=== PATIENT | female | born 1950 | race Caucasian/White ===

== ENCOUNTER 2018-11-03 07:12 | Inpatient (IN) | payer MEDICARE ==
[~2018-11-03] VITALS: Ht 165.1 cm; Wt 71.7 kg
[~2018-11-03 07:12] MED LIST: CLINDAMYCIN HC150 MG PO; LISINOPRIL-HCT1 EAC2 PO; NEXIUM40 MG PO; TYLENOL WITH C1 EACH PO; ULTRACET TABLE1 EACH PO; ZOLPIDEM TARTRA10 MG PO
--- OUTSIDE RECORDS SUMMARY | 2018-11-03 07:18 | XMS REPORT ---
Author Author Manjit Lowery Organization [employer] Address Unknown Phone Unavailable Care Team Providers Care Inbound Call Center Representative Name Role Phone Manjit Lowery Unavailable Allergies No Known Allergies Problems No Known Problems Medications No Known Medications Results No Known Results Summary Purpose [employer] Submission
--- OUTSIDE RECORDS SUMMARY | 2018-11-03 07:18 | XMS REPORT | Continuity of Care Document ---
Author Author [employer] Organization [employer] Address Unknown Phone Unavailable Care Team Providers Care Rehabilitation Team Lead Name Role Phone [employer] Information [employer] Unavailable Unavailable Problems Problem Status Onset Date Classification Date Reported Comments Source Osteoarthritis of lumbar spine, unspecified spinal osteoarthritis complication status Active Diagnosis 08/07/2016 Wally Boucher Sprain of right rotator cuff capsule, sequela Active Diagnosis 08/07/2016 Wally Boucher Osteoarthritis of thoracic spine, unspecified spinal osteoarthritis complication status Active Diagnosis 08/07/2016 Wally Boucher Medications Medication Details Route Status Patient Instructions Ordering Provider Order Date Source Cyclobenzaprine HCl 1 tablet Orally Active 5 MG Orally daily [facility] 02/02/2017 Wally Boucher Acetaminophen-Codeine #3 1 tablet as needed Orally Active 300- 30 MG Orally daily [facility] 02/02/2017 Wally Boucher Meloxicam 1 tablet Orally Active 7.5 MG Orally Once a day [facility] 02/02/2017 Wally Boucher Nexium 1 capsule Orally Active Orally Once a day [facility] Wally Boucher Meloxicam TAKE 1 TABLET BY MOUTH EVERY DAY NA Active 7.5 MG [facility] Wally Boucher Atorvastatin Calcium 1 tablet Orally Active Orally Once a day [facility] Wally Boucher Metformin HCl 1 tablet with meals Orally Active 500 MG Orally TID [facility] Wally Boucher Lisinopril 1 tablet Orally Active 20 MG Orally Once a day [facility] Wally Boucher Allergies, Adverse Reactions, Alerts Substance Category Reaction Severity Reaction type Status Date Reported Comments Source N.K.D.A. Adverse Reaction Info Not Available Adverse Reaction Active 08/06/2016 Wally Boucher Immunizations No Data Provided for This Section Results No Data Provided for This Section Pathology Reports No Data Provided for This Section Diagnostic Reports No Data Provided for This Section Consultation Notes No Data Provided for This Section Discharge Summaries No Data Provided for This Section History and Physicals No Data Provided for This Section Vital Signs Vital Sign Value Date Comments Source Weight 181.5 08/06/2016 Wally Boucher Height 66 08/06/2016 Wally Boucher Temperature Oral (F) 97.1 F 08/06/2016 Wally Boucher Heart Rate 96 08/06/2016 Wally Boucher Diastolic (mm Hg) 60 08/06/2016 Wally Boucher Systolic (mm Hg) 122 08/06/2016 Wally Boucher Encounters No Data Provided for This Section Procedures No Data Provided for This Section Assessment and Plan No Data Provided for This Section Plan of Care No Data Provided for This Section Social History No Data Provided for This Section Family History No Data Provided for This Section Advance Directives No Data Provided for This Section Functional Status No Data Provided for This Section
--- OUTSIDE RECORDS SUMMARY | 2018-11-03 07:18 | XMS REPORT ---
Author Author Manjit Lowery Organization [employer] Address Unknown Phone Unavailable Care Team Providers Care Mechanical Facilities Technician Name Role Phone Manjit Lowery Unavailable Allergies No Known Allergies Problems No Known Problems Medications No Known Medications Results No Known Results Summary Purpose [employer] Submission
--- OUTSIDE RECORDS SUMMARY | 2018-11-03 07:19 | XMS REPORT ---
Author Author Manjit Lowery Organization [employer] Address Unknown Phone Unavailable Care Team Providers Care Voltmeter Operator Name Role Phone Manjit Lowery Unavailable Allergies No Known Allergies Problems No Known Problems Medications No Known Medications Results No Known Results Summary Purpose [employer] Submission
--- OUTSIDE RECORDS SUMMARY | 2018-11-03 07:19 | XMS REPORT ---
Author Author Manjit Lowery Organization [employer] Address Unknown Phone Unavailable Care Team Providers Care Shingle Trimmer Name Role Phone Manjit Lowery Unavailable Allergies, Adverse Reactions, Alerts Substance Reaction Event Type N.K.D.A. Info Not Available Non Drug Allergy Problems Problem Type Condition Code Onset Dates Condition Status Assessment Osteoarthritis of lumbar spine, unspecified spinal osteoarthritis complication status M47.816 Active Assessment Sprain of right rotator cuff capsule, sequela S43.421S Active Assessment Osteoarthritis of thoracic spine, unspecified spinal osteoarthritis complication status M47.814 Active Medications Medication Code System Code Instructions Start Date End Date Status Dosage Nexium [facility] [address]-88 Orally Once a day Active 1 capsule Cyclobenzaprine HCl [facility] [address]-03 5 MG Orally daily Feb 02, 2017 Active 1 tablet Meloxicam [facility] 80615120381 7.5 MG Active TAKE 1 TABLET BY MOUTH EVERY DAY Acetaminophen-Codeine #3 [facility] [address]-94 300-30 MG Orally daily Feb 02, 2017 Active 1 tablet as needed Atorvastatin Calcium [facility] [address]-84 Orally Once a day Active 1 tablet Metformin HCl [facility] [address]-21 500 MG Orally TID Active 1 tablet with meals Lisinopril [facility] [address]-61 20 MG Orally Once a day Active 1 tablet Meloxicam [facility] [address]-89 7.5 MG Orally Once a day Feb 02, 2017 Active 1 tablet Vital Signs Date/Time: August 06, 2016 BMI 29.29 Index Weight 181.5 lbs Height 66 in Temperature 97.1 F Cardiac Monitoring Heart Rate 96 /min Blood Pressure Diastolic 60 mm Hg Blood Pressure Systolic 122 mm Hg Results No Known Results Summary Purpose [employer] Submission
[2018-11-03 08:01] LABS: BASOPHILS % 0.3 % (0.0-1.0); EOSINOPHILS # (AUTO) 0.1 (0.0-0.4); EOSINOPHILS % 0.5 % (0.0-6.0); HEMATOCRIT 38.7 % (34.2-44.1); HEMOGLOBIN 12.6 g/dL (12.0-16.0); LYMPHOCYTES # (AUTO) 0.3 (1.0-3.2); LYMPHOCYTES % 1.8 % (18.0-39.1); MEAN CORPUSCULAR HEMOGLOBIN 27.6 pg (28-32); MEAN CORPUSCULAR HGB CONC 32.6 g/dL (31-35); MEAN CORPUSCULAR VOLUME 84.7 fL (81-99); MONOCYTES # (AUTO) 0.9 (0.2-0.8); MONOCYTES % 6.1 % (4.4-11.3); NEUTROPHILS # (AUTO) 13.2 (2.1-6.9); NEUTROPHILS % 90.1 % (38.7-80.0); PLATELET COUNT 232 x10e3/uL (140-360); RED BLOOD COUNT 4.57 x10e6/uL (3.6-5.1); RED CELL DISTRIBUTION WIDTH 14.9 % (11.7-14.4)
[2018-11-03 08:14] LABS: ALBUMIN 3.8 g/dL (3.5-5.0); ALBUMIN/GLOBULIN RATIO 1.1 (0.8-2.0); ANION GAP 16.6 mmol/L (8-16); CALCIUM 10.1 mg/dL (8.4-10.2); CREATININE, SERUM 1.21 mg/dL (0.57-1.11); POTASSIUM 3.6 mmol/L (3.5-5.1)
[2018-11-03] MEDS ORDERED: NEXIUM40 MG PO (08:25)
[2018-11-03] MEDS ORDERED: VITAMIN D32000 UNIT PO (08:26)
[2018-11-03] MEDS ORDERED: JANUVIA100 MG PO (08:28)
[2018-11-03] MEDS ORDERED: LISINOPRIL-HCT1 EACH PO (08:28)
[2018-11-03] MEDS ORDERED: CO Q-10 100 MG1 EACH PO (08:28)
[2018-11-03] MEDS ORDERED: ATORVASTATIN CA20 MG PO (08:30)
[2018-11-03] MEDS ORDERED: MELOXICAM15 MG PO (08:30)
[2018-11-03] MEDS ORDERED: TRULICITY INJ (08:32)
[2018-11-03] MEDS ORDERED: FARXIGA PO (08:33)
[2018-11-03] MEDS ORDERED: PROMETHAZINE 25MG/ NS 50ML (IV) IV PRN (09:30)
[2018-11-03] MEDS ORDERED: SODIUM CHLORIDE 0.9% 1000ML 1,000 ML IV SCH (09:30)
[2018-11-03] MEDS ORDERED: DEXTROSE 50% SYRINGE 50 ML IV PRN (09:45)
[2018-11-03] MEDS: CEFTRIAXONE SOD 1 GM/NS 50 ML 50 ML IV SCH ×2 (10:00→21:47)
--- NOTE | 2018-11-03 10:00 | NUR ---
This 68 y/o female presented from the ER with recent onset of lower g i bleed since late last p m. She denies pain or discomfort at this time. There is an iv(18) in the left hand and radiology requests a second iv due to the pt's history of l mastectomy. Telemetry #29 is intact reading sinus rhythm. A second iv was placed in the r fa. The pt's family is in attendance.
--- OUTSIDE RECORDS SUMMARY | 2018-11-03 10:11 | XMS REPORT | Continuity of Care Document ---
Author Author [employer] Organization [employer] Address Unknown Phone Unavailable Care Team Providers Care Quality Reviewer Name Role Phone [employer] Unavailable Unavailable Problems Problem Status Onset Date [...] tablet Orally Active [address] [facility] 02/02/2017 Wally Boucher Acetaminophen-Codeine #3 1 tablet as needed Orally Active 300- [address] [facility] 02/02/2017 Wally Boucher Meloxicam 1 tablet Orally Active 7.5 MG Orally Once a day [facility] 02/02/2017 Wally Boucher Nexium 1 capsule Orally Active Orally Once a day [facility] Wally Boucher Meloxicam TAKE 1 TABLET BY MOUTH EVERY DAY NA Active 7.[address] [facility] Wally Boucher Atorvastatin Calcium 1 tablet Orally Active Orally Once a day [facility] Wally Boucher Metformin HCl 1 tablet with meals Orally Active [address] [facility] Wally Boucher Lisinopril 1 tablet Orally Active 20 MG Orally Once a day [facility] Wally Boucher Allergies, Adverse Reactions, Alerts [...]
[2018-11-03 10:32] VITALS: BP 135/54
--- NOTE | 2018-11-03 10:59 | History and Physical ---
CHIEF COMPLAINT: "I have been having bloody diarrhea since 1 o'clock this morning." HISTORY OF PRESENT ILLNESS: This 68-year-old white woman, who presents to [facility] with a 1-day history of bloody diarrhea. The patient's symptoms began immediately soon after midnight, early this morning. The patient complains of abdominal cramping, particularly in the lower abdominal area. The patient also complains of nausea and vomiting. The patient states that her weekly injectable GLP-1 agonist therapy, namely Trulicity causes her to have worsening GERD symptoms and sometimes nausea and vomiting. However, the patient states the symptoms are worse than usual. She denies any fever, chills, but states she feels quite ill. In the emergency room, the patient was found to have a white blood cell count of 14,600 with 90% segmented neutrophils. The patient's initial hemoglobin is 12.6 g/dL. The patient is also found to have BUN and creatinine of 25 and 1.21 respectively. The patient's AST and ALT were 64 and 84 respectively, but she does have history of fatty liver disease. The patient was admitted for further evaluation and treatment. The patient states she does take meloxicam on a daily basis and sporadically takes a full-dose aspirin for breakthrough pain. REVIEW OF SYSTEMS: GENERAL: Weight has been stable. No fever, chills, but she feels quite ill. HEENT: No headaches. No vision changes. CARDIOVASCULAR: No chest pain. No shortness of breath. No cough. She does complain of sleep apnea symptoms. GI: Nausea, vomiting, diarrhea, particularly bloody diarrhea since early this morning. The patient denies any melena. The patient states she has seen visible bright red blood in her stool and has been mainly liquid. : Denies any UTI symptoms. NEUROMUSCULAR: No limb weakness. She does have numbness in the plantar aspect of bilateral feet secondary to neuropathy. PAST MEDICAL HISTORY: 1. Type 2 diabetes mellitus with neuropathy. 2. Hypertensive heart disease. 3. Hyperlipidemia. 4. Generalized osteoarthritis. 5. GERD. 6. Chronic insomnia. 7. Fatty liver disease. PAST SURGICAL HISTORY: 1. Left mastectomy because of breast cancer. 2. Breast reconstruction. 3. Face lift. 4. Bilateral stapedectomy. FAMILY HISTORY: Brother with history of coronary artery bypass grafting. Mother of lung cancer at age 62. Father had Alzheimer disease. ALLERGIES: NO KNOWN DRUG ALLERGIES. SOCIAL HISTORY: She is , lives with . 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 She drinks a glass of wine twice a week. Denies any tobacco use. HOME MEDICATIONS: 1. Nexium 40 mg daily. 2. Lisinopril/hydrochlorothiazide 20/12.5 mg daily. 3. Januvia 100 mg daily. 4. Zolpidem 10 mg at bedtime p.r.n. insomnia. 5. Farxiga 10 mg daily. 6. Trulicity 1.5 mg subcutaneous weekly. 7. Vitamin D3 2000 units daily. 8. Tylenol with codeine No. 3 one pill every 6 hours for pain. 9. Vitamin B12 1000 mcg p.o. daily. 10. Biotin once daily. 11. Atorvastatin 40 mg at bedtime. 12. Coenzyme Q10 200 mg daily. 13. Meloxicam 15 mg daily. PHYSICAL EXAMINATION: GENERAL: She is awake, alert, and fluent. She is pleasant on exam. Her and daughter are bedside. VITAL SIGNS: Height 5 feet 5 inches, weight 170 pounds, BMI is 29. Blood pressure is 110/40, pulse is 104, respiratory rate 18, oxygen 96%, temp 99.0. INTEGUMENT: Skin is warm and dry. No pallor, jaundice, or diaphoresis. HEENT: Anicteric sclerae with dry mucous membranes. NECK: Supple. CARDIOVASCULAR: Tachycardic rate and rhythm. LUNGS: No rales, no rhonchi. ABDOMEN: Exquisite tenderness when palpating the lower quadrants, particularly in the left lower quadrant. She does have some guarding. EXTREMITIES: No edema. ASSESSMENT: 1. Diverticulitis, likely. 2. Lower gastrointestinal bleeding, likely secondary to diverticulitis. 3. Gastroesophageal reflux disease, exacerbated by underlying GLP-1 agonist therapy. 4. History of constipation with likely subsequent hemorrhoids. 5. Acute renal insufficiency. 6. Type 2 diabetes mellitus with neuropathy. PLAN: 1. We will stop lisinopril and hydrochlorothiazide as this patient has acute renal failure. 2. Stop all NSAIDs, namely meloxicam as well as aspirin since patient has known acute renal failure and has lower gastrointestinal bleeding. 3. Follow hemoglobin and hematocrit as well as white blood cell count. 4. Intravenous fluids. 5. Intravenous antibiotics for patient's presumed diverticulitis. 6. Order CT of abdomen and pelvis to confirm diagnosis of diverticulitis. 7. I will follow renal function and electrolytes. 8. Intravenous antiemetics. 9. Pain control. 10. Blood glucose monitoring control. I spent 45 minutes in the care of this patient. MD CHERRIE Singh/ANNALISA /[id number] MTDD
[2018-11-03 11:08] VITALS: BP 135/54
[2018-11-03] MEDS: INSULIN LISPRO 100 UNIT/1 ML 3ML VIAL SQ SCH ×3 (11:30→21:00)
[2018-11-03 11:48] VITALS: BP 117/56
--- NOTE | 2018-11-03 12:58 | Diagnostic Imaging Report ---
EXAM: CT Abdomen and Pelvis WITH intravenous contrast INDICATION: GI bleeding COMPARISON: None. TECHNIQUE: Abdomen and pelvis were scanned utilizing a multidetector helical scanner from the lung base to the pubic symphysis after administration of IV contrast. Coronal and sagittal reformations were obtained. Routine protocol was performed. Scan was performed when during portal venous phase. IV CONTRAST: 100 mL of Isovue-370 ORAL CONTRAST: Water COMPLICATIONS: None RADIATION DOSE: Total DLP: 760.54 mGy*cm Dose modulation, iterative reconstruction, and/or weight based adjustment of the mA/kV was utilized to reduce the radiation dose to as low as reasonably achievable. FINDINGS: LOWER THORAX: No focal consolidation. Mild bibasilar subsegmental atelectasis. 5 mm left lower lobe nodule (series 2 image 4). 9 mm left lower lobe calcified granuloma. Left breast implant. HEPATOBILIARY: Diffusely hypoattenuating liver parenchyma, consistent with hepatic steatosis. No focal liver lesions. No biliary ductal dilatation. The gallbladder appears unremarkable. SPLEEN: No splenomegaly. PANCREAS: No focal masses or ductal dilatation. ADRENALS: No adrenal nodules. KIDNEYS/URETERS: No hydronephrosis, stones, or solid mass lesions. PELVIC ORGANS/BLADDER: Unremarkable. PERITONEUM / RETROPERITONEUM: No free air or fluid. LYMPH NODES: No lymphadenopathy. VESSELS: Scattered atherosclerotic calcifications of the abdominal aorta and major branches. GI TRACT: Diffuse colonic wall thickening extending from the ascending colon through the sigmoid colon with pericolonic fat stranding most prominently adjacent to the descending colon. No evidence of bowel obstruction. BONES AND SOFT TISSUES: Unremarkable. IMPRESSION: Diffuse colonic wall thickening extending from the ascending colon to the sigmoid colon with pericolonic fat stranding most notably adjacent to the descending colon is consistent with colitis. Hepatic steatosis. Left lower lobe 5 mm pulmonary nodule. No imaging follow-up is needed. Signed by: Africa Richardson MD on 11/03/2018 12:54 PM
[2018-11-03] MEDS ORDERED: METRONIDAZOLE 500MG/NS 100ML 100 ML IV SCH (14:00)
[2018-11-03 14:14] LABS: HEMATOCRIT 34.2 % (34.2-44.1); HEMOGLOBIN 11.3 g/dL (12.0-16.0)
[2018-11-03] MEDS: METRONIDAZOLE 500MG/NS 100ML 100 ML IV SCH ×2 (14:41→23:44)
[2018-11-03 16:07] VITALS: BP 105/54
--- NOTE | 2018-11-03 16:22 | NUR ---
The pt. c/o headache and a call was placed to Dr. Walters for tylenol. Received order and also order to stop the q6hr h &h. Labs order for morning is already pending. Took the med i and the spouse states'she is asleep now don't wake her up.
[2018-11-03] MEDS: ACETAMINOPHEN 325 MG TAB PO PRN (16:43)
[2018-11-03] MEDS ORDERED: IOPAMIDOL 370 MG/ML 200 ML INFUS..BTL INJ ONE (19:59)
[2018-11-03] MEDS ORDERED: SODIUM CHLORIDE 0.9% 50ML 50 ML ONE (19:59)
[2018-11-03 20:00] VITALS: BP 137/74
--- NOTE | 2018-11-03 20:00 | NUR ---
ROUNDS DONE, PATIENT RESTING ON THE SIDE OF THE BED, IV INFUSING, NO COMPLAINTS OF PAIN OR DISCOMFORT. CALL LIGHT REMAIN IN REACH. WILL CONTINUE TO MONITOR
[2018-11-03] MEDS ORDERED: ZOLPIDEM TARTRATE 10 MG TAB PO SCH (21:00)
[2018-11-03] MEDS: ZOLPIDEM TARTRATE 10 MG TAB PO SCH (21:47)
[2018-11-04] VITALS (9 sets, daily range): BP systolic 102–143; BP diastolic 48–74
--- NOTE | 2018-11-04 | NUR ---
ASLEEP, WILL CONTINUE TO MONITOR.
[2018-11-04 05:39] LABS: BASOPHILS # (AUTO) 0.1 (0.0-0.1); BASOPHILS % 0.4 % (0.0-1.0); EOSINOPHILS # (AUTO) 0.1 (0.0-0.4); EOSINOPHILS % 0.5 % (0.0-6.0); HEMATOCRIT 32.9 % (34.2-44.1); HEMOGLOBIN 10.5 g/dL (12.0-16.0); LYMPHOCYTES # (AUTO) 1.5 (1.0-3.2); LYMPHOCYTES % 10.3 % (18.0-39.1); MEAN CORPUSCULAR HEMOGLOBIN 27.3 pg (28-32); MEAN CORPUSCULAR HGB CONC 31.9 g/dL (31-35); MEAN CORPUSCULAR VOLUME 85.5 fL (81-99); MONOCYTES # (AUTO) 1.2 (0.2-0.8); MONOCYTES % 8.8 % (4.4-11.3); NEUTROPHILS # (AUTO) 11.3 (2.1-6.9); NEUTROPHILS % 79.6 % (38.7-80.0); PLATELET COUNT 198 x10e3/uL (140-360); RED BLOOD COUNT 3.85 x10e6/uL (3.6-5.1); RED CELL DISTRIBUTION WIDTH 15.3 % (11.7-14.4)
[2018-11-04 06:03] LABS: ALANINE AMINOTRANSFERASE 75 IU/L (0-55); ALBUMIN 2.9 g/dL (3.5-5.0); ALBUMIN/GLOBULIN RATIO 0.9 (0.8-2.0); ALKALINE PHOSPHATASE 126 IU/L (40-150); ANION GAP 11.6 mmol/L (8-16); BLOOD UREA NITROGEN 17 mg/dL (7-26); BUN/CREATININE RATIO 20 (6-25); CALCIUM 8.9 mg/dL (8.4-10.2); CARBON DIOXIDE 23 mmol/L (22-29); CHLORIDE 106 mmol/L (98-107); CREATININE, SERUM 0.86 mg/dL (0.57-1.11); EST GLOMERULAR FILTRATION RATE > 60 ML/MIN (60-); GLUCOSE 107 mg/dL (74-118); POTASSIUM 3.6 mmol/L (3.5-5.1); SODIUM 137 mmol/L (136-145)
[2018-11-04] MEDS: METRONIDAZOLE 500MG/NS 100ML 100 ML IV SCH ×3 (06:07→22:30)
--- NOTE | 2018-11-04 06:59 | NUR ---
patient continue resting, rounds done, patient did have a bloody stool last night, no complaints at this time. will continue to monitor. call light in reach.
[2018-11-04] MEDS: INSULIN LISPRO 100 UNIT/1 ML 3ML VIAL SQ SCH ×4 (07:30→21:00)
--- NOTE | 2018-11-04 07:30 | NUR ---
This sign writer hand noted a small blood tinged stool and the pt. reports that there was much more in the previous stool. Rounding completed.
[2018-11-04] MEDS: PANTOPRAZOLE 40 MG 10ML VIAL IV SCH (08:15)
[2018-11-04] MEDS: SITAGLIPTIN 100 MG TAB PO SCH (08:15)
[2018-11-04] MEDS: CEFTRIAXONE SOD 1 GM/NS 50 ML 50 ML IV SCH ×2 (08:22→21:19)
--- NOTE | 2018-11-04 10:00 | NUR ---
Dr. Walters visited and new orders received and notated.
[2018-11-04 12:03] LABS: HEMATOCRIT 31.3 % (34.2-44.1); HEMOGLOBIN 10.2 g/dL (12.0-16.0)
--- NOTE | 2018-11-04 15:10 | NUR ---
Visit made by the Spiritual Care Department Pastoral Visitor, Lakeisha Torres. PV provided pastoral presence, prayer, hospitality, and supportive listening. Pastoral Visitor informed pt/family of the scope of [employer] and availability. EDER RODRIGUEZ Aircraft Lay Out Worker Spiritual Care Department O: [phone] Pager: [phone] ([phone] number calling from)
--- NOTE | 2018-11-04 15:40 | NUR ---
PLAN IS TO DISCHARGE HOME TOMORROW NO NEEDS FROM CM
[2018-11-04 18:13] LABS: HEMATOCRIT 31.3 % (34.2-44.1); HEMOGLOBIN 10.4 g/dL (12.0-16.0)
--- NOTE | 2018-11-04 19:20 | NUR ---
Patient received lying in bed. Daughter at bedside. AAO x 4. Patient had no c/o pain. No respiratory distress noted. Bed locked and in lowest position. Bed rails up x 2. Patient instructed to call for assistance when needed. Call light within reach.
[2018-11-04] MEDS: ZOLPIDEM TARTRATE 10 MG TAB PO SCH (21:18)
[2018-11-05] VITALS (7 sets, daily range): BP systolic 111–157; BP diastolic 51–67
[2018-11-05] MEDS: METRONIDAZOLE 500MG/NS 100ML 100 ML IV SCH ×3 (05:46→22:26)
[2018-11-05 06:28] LABS: BASOPHILS # (AUTO) 0.1 (0.0-0.1); BASOPHILS % 0.4 % (0.0-1.0); EOSINOPHILS # (AUTO) 0.1 (0.0-0.4); EOSINOPHILS % 0.6 % (0.0-6.0); HEMATOCRIT 32.1 % (34.2-44.1); HEMOGLOBIN 10.5 g/dL (12.0-16.0); LYMPHOCYTES # (AUTO) 1.3 (1.0-3.2); LYMPHOCYTES % 9.7 % (18.0-39.1); MEAN CORPUSCULAR HEMOGLOBIN 27.4 pg (28-32); MEAN CORPUSCULAR HGB CONC 32.7 g/dL (31-35); MEAN CORPUSCULAR VOLUME 83.8 fL (81-99); MONOCYTES # (AUTO) 1.2 (0.2-0.8); MONOCYTES % 8.4 % (4.4-11.3); NEUTROPHILS # (AUTO) 10.9 (2.1-6.9); NEUTROPHILS % 80.2 % (38.7-80.0); PLATELET COUNT 221 x10e3/uL (140-360); RED BLOOD COUNT 3.83 x10e6/uL (3.6-5.1)
[2018-11-05 06:54] LABS: ALANINE AMINOTRANSFERASE 48 IU/L (0-55); ALBUMIN 2.8 g/dL (3.5-5.0); ALBUMIN/GLOBULIN RATIO 0.8 (0.8-2.0); ALKALINE PHOSPHATASE 138 IU/L (40-150); ANION GAP 12.8 mmol/L (8-16); BLOOD UREA NITROGEN 11 mg/dL (7-26); BUN/CREATININE RATIO 13 (6-25); CALCIUM 9.2 mg/dL (8.4-10.2); CARBON DIOXIDE 22 mmol/L (22-29); CHLORIDE 106 mmol/L (98-107); CREATININE, SERUM 0.82 mg/dL (0.57-1.11); EST GLOMERULAR FILTRATION RATE > 60 ML/MIN (60-); GLUCOSE 118 mg/dL (74-118); POTASSIUM 3.8 mmol/L (3.5-5.1); SODIUM 137 mmol/L (136-145)
[2018-11-05] MEDS: INSULIN LISPRO 100 UNIT/1 ML 3ML VIAL SQ SCH ×4 (07:30→21:00)
[2018-11-05 07:57] LABS: BAND NEUTROPHILS % (MANUAL) 19 %; EOSINOPHILS % (MANUAL) 1 % (0-7); HYPOCHROMASIA SLIGHT; LYMPHOCYTES % (MANUAL) 6 % (19-48); METAMYELOCYTES % (MANUAL) 2 % (0-0); MONOCYTES % (MANUAL) 6 % (3.4-9.0); NEUTROPHILS % (MANUAL) 66 % (40-74); PLATELET ESTIMATE ADEQUATE; PLATELET MORPHOLOGY COMMENT NORMAL
[2018-11-05] MEDS: ACETAMINOPHEN 325 MG TAB PO PRN (07:58)
[2018-11-05] MEDS: SITAGLIPTIN 100 MG TAB PO SCH (08:38)
[2018-11-05] MEDS: PANTOPRAZOLE 40 MG 10ML VIAL IV SCH (08:38)
[2018-11-05] MEDS: CEFTRIAXONE SOD 1 GM/NS 50 ML 50 ML IV SCH ×2 (08:38→21:27)
[2018-11-05] MEDS ORDERED: DICYCLOMINE HCL 20 MG TAB PO NR (09:30)
--- NOTE | 2018-11-05 10:30 | NUR ---
Nutrition Screen Note RD Recommendation for Physician: -Rec to advance diet as tolerated to ADA/ GI soft Plan of Care: RD following, monitoring for tolerance and adequacy Nutrition reason for involvement: Nutrition Risk Trigger MST Primary Diagnose(s): lower GI bleed PMH: 1. Type 2 diabetes mellitus with neuropathy. 2. Hypertensive heart disease. 3. Hyperlipidemia. 4. Generalized osteoarthritis. 5. GERD. 6. Chronic insomnia. 7. Fatty liver disease. Ht: 65in Wt: 158lb BMI: 26.3kg/m2 IBW: 125lb +/- 10% RD Assessment: (11/05) Chart reviewed. Labs and meds reviewed. 68 yo F, who was admitted for lower GI bleed. Abd/pel CT showed colitis. Visited pt in the room. Pt reported eating well prior and during hospital stay. No complains of nausea or vomiting. LBM 11/04. Pt has lost ~20lbs in the past few years and was happy about the weight loss. Pt denied any chewing or swallowing difficulty. Will continue to monitor and follow. Current Diet: clear liquid diet Malnutrition Evaluation (11/05/2018) The patient does not meet criteria for a specified degree of malnutrition at this time. Will re-evaluate at follow-up as appropriate. Diet Education Needs Assessment: Diet education not indicated. Nutrition Care Level: low Signed: Shelbie Nieves, MS, RD, LD
[2018-11-05 12:14] LABS: HEMATOCRIT 29.1 % (34.2-44.1); HEMOGLOBIN 9.6 g/dL (12.0-16.0)
[2018-11-05] MEDS ORDERED: PEG (High)/E-LYTE SOLN 4,000 ML BTL PO NR (12:15)
[2018-11-05 12:29] LABS: PROTHROMBIN TIME 13.7 seconds (11.9-14.5)
[2018-11-05] MEDS: DICYCLOMINE HCL 10 MG CAP PO SCH (16:51)
[2018-11-05 18:29] LABS: HEMATOCRIT 31.2 % (34.2-44.1); HEMOGLOBIN 10.3 g/dL (12.0-16.0)
--- NOTE | 2018-11-05 19:13 | NUR ---
PT IS RESTING IN BED. RESPIRATION IS EVEN AND UNLABORED, NO DISTRESS NOTED. BED IN THE LOWEST POSITION, LOCKED, AND CALL LIGHT WITHIN REACH. WILL CONTINUE TO MONITOR.
--- NOTE | 2018-11-05 19:18 | NUR ---
PATIENT IN STABLE CONDITION WITH NO S/S OF RESPIRATORY DISTRESS. NO PAIN VOICED. FAMILY MEMBERS PRESENT IN ROOM. CALL LIGHT IS WITHIN REACH, PATIENT INSTRUCTED TO CALL FOR ASSISTANCE NEEDED. BEDSIDE REPORT GIVEN TO ONCOMING NURSE.
[2018-11-05] MEDS: ZOLPIDEM TARTRATE 10 MG TAB PO SCH (21:27)
[2018-11-06] VITALS (8 sets, daily range): BP systolic 108–144; BP diastolic 54–65
[2018-11-06 00:04] LABS: HEMATOCRIT 29.6 % (34.2-44.1); HEMOGLOBIN 9.7 g/dL (12.0-16.0)
[2018-11-06] MEDS: METRONIDAZOLE 500MG/NS 100ML 100 ML IV SCH ×3 (05:30→21:27)
[2018-11-06 06:08] LABS: BASOPHILS # (AUTO) 0.1 (0.0-0.1); BASOPHILS % 0.8 % (0.0-1.0); EOSINOPHILS # (AUTO) 0.2 (0.0-0.4); EOSINOPHILS % 2.6 % (0.0-6.0); HEMOGLOBIN 8.8 g/dL (12.0-16.0); LYMPHOCYTES # (AUTO) 1.3 (1.0-3.2); LYMPHOCYTES % 19.1 % (18.0-39.1); MEAN CORPUSCULAR HEMOGLOBIN 27.6 pg (28-32); MEAN CORPUSCULAR HGB CONC 32.6 g/dL (31-35); MEAN CORPUSCULAR VOLUME 84.6 fL (81-99); MONOCYTES # (AUTO) 0.8 (0.2-0.8); MONOCYTES % 11.6 % (4.4-11.3); NEUTROPHILS # (AUTO) 4.2 (2.1-6.9); NEUTROPHILS % 64.2 % (38.7-80.0); PLATELET COUNT 178 x10e3/uL (140-360); RED BLOOD COUNT 3.19 x10e6/uL (3.6-5.1); RED CELL DISTRIBUTION WIDTH 14.8 % (11.7-14.4)
[2018-11-06 06:30] LABS: ALANINE AMINOTRANSFERASE 29 IU/L (0-55); ALBUMIN 2.6 g/dL (3.5-5.0); ALBUMIN/GLOBULIN RATIO 0.8 (0.8-2.0); ALKALINE PHOSPHATASE 107 IU/L (40-150); ANION GAP 13.5 mmol/L (8-16); BLOOD UREA NITROGEN 9 mg/dL (7-26); BUN/CREATININE RATIO 12 (6-25); CALCIUM 8.7 mg/dL (8.4-10.2); CARBON DIOXIDE 22 mmol/L (22-29); CHLORIDE 106 mmol/L (98-107); CREATININE, SERUM 0.74 mg/dL (0.57-1.11); EST GLOMERULAR FILTRATION RATE > 60 ML/MIN (60-); GLUCOSE 90 mg/dL (74-118); POTASSIUM 3.5 mmol/L (3.5-5.1); SODIUM 138 mmol/L (136-145)
[2018-11-06] MEDS: DICYCLOMINE HCL 10 MG CAP PO SCH ×3 (06:43→18:04)
[2018-11-06 06:45] LABS: FERRITIN 85.36 ng/mL (4.63-204.00)
--- NOTE | 2018-11-06 07:15 | NUR ---
PATIENT IN STABLE CONDITION WITH NO S/S OF RESPIRATORY DISTRESS. NO PAIN VOICED. PATIENT IS SET TO HAVE A COLONOSCOPY TODAY. CALL LIGHT IS WITHIN REACH, PATIENT INSTRUCTED TO CALL FOR ASSISTANCE NEEDED.
[2018-11-06] MEDS: INSULIN LISPRO 100 UNIT/1 ML 3ML VIAL SQ SCH ×4 (07:30→20:24)
[2018-11-06 08:03] LABS: FOLATE 28.4 ng/mL (7.0-15.4)
[2018-11-06] MEDS: SITAGLIPTIN 100 MG TAB PO SCH (08:06)
[2018-11-06] MEDS: PANTOPRAZOLE 40 MG 10ML VIAL IV SCH (08:06)
[2018-11-06] MEDS: CEFTRIAXONE SOD 1 GM/NS 50 ML 50 ML IV SCH ×2 (08:33→20:24)
[2018-11-06 12:41] LABS: HEMATOCRIT 30.6 % (34.2-44.1)
--- NOTE | 2018-11-06 16:27 | NUR ---
PATIENT OFF THE UNIT PER BED TO [facility] FOR COLONOSCOPY. PATIENT IN STABLE CONDITION WITH NO S/S OF RESPIRATORY DISTRESS.
[2018-11-06] MEDS ORDERED: DEXTROSE 5%/0.45% SOD CHL 500 ML IV ONE (16:30)
[2018-11-06] MEDS ORDERED: PROPOFOL IV EMULSION 10 MG/ML 50 ML VIAL ONE (16:51)
--- NOTE | 2018-11-06 17:56 | NUR ---
PATIENT BACK ON THE UNIT PER BED FROM RECOVERY- PATIENT IN STABLE CONDITION WITH NO S/S OF RESPIRATORY DISTRESS. DIAPER APPLIED TO PATIENT. CALL LIGHT WITHIN REACH OF PATIENT.
[2018-11-06 18:48] LABS: WBC,FECAL (FECAL LACTOFERRIN) POSITIVE (NEGATIVE)
--- NOTE | 2018-11-06 19:02 | NUR ---
PATIENT IN STABLE CONDITION WITH NO S/S OF RESPIRATORY DISTRESS. NO PAIN VOICED. DIAPER APPLIED. CALL LIGHT IS WITHIN REACH, PATIENT INSTRUCTED TO CALL FOR ASSISTANCE NEEDED. BEDSIDE REPORT GIVEN TO ONCOMING NURSE.
[2018-11-06] MEDS ORDERED: FENTANYL CITRATE/PF 100MCG/2 ML INJ ONE (19:14)
[2018-11-06] MEDS ORDERED: MIDAZOLAM HCL 2 MG/2 ML VIAL ONE (19:14)
[2018-11-06] MEDS: ZOLPIDEM TARTRATE 10 MG TAB PO SCH (20:24)
[2018-11-06] MEDS ORDERED: POTASSIUM CHLORIDE 10MEQ EA PO NR (20:30)
[2018-11-07] VITALS: BP 120/53
--- NOTE | 2018-11-07 03:14 | Operative Report ---
DATE OF PROCEDURE: 11/06/2018 SURGEON: Eliud Foy MD PROCEDURE: Colonoscopy with biopsies. INDICATIONS FOR COLONOSCOPY: Rectal bleeding. MEDICATION: The patient was done under MAC, please see anesthesiologist's note. PROCEDURE IN DETAIL: With the patient in the left lateral decubitus position, flexible fiberoptic Olympus colonoscope was inserted into the rectum with ease and advanced to approximately 80 cm from the anal verge probably to the distal transverse colon. It could not be advanced any further to avoid possibly perforating the colon as the descending colon and sigmoid colon were severely and diffusely ulcerated as well as the distal transverse colon. The scope was then withdrawn slowly and mucosa overlying the distal transverse descending and the proximal two-thirds of the sigmoid colon were severely and diffusely ulcerated. Biopsies were obtained. The distal sigmoid was spared as well as the rectum. The scope was then retroflexed into the distal rectum and small internal hemorrhoids were noted, none of which was actively bleeding. The scope was then straightened out, it was subsequently withdrawn after securing an adequate stool specimen and that was sent for the appropriate stool studies. The patient tolerated procedure well. IMPRESSION: 1. Colonoscopy to approximately 80 cm from the anal verge. Scope not advanced any further to avoid the risk of perforating the colon as the colonic mucosa was severely and diffusely ulcerated. 2. Rule out ischemic colitis. 3. Internal hemorrhoids, none actively bleeding. PLAN: Follow up histology. Follow up stool studies. Initiate full liquid diet. The patient will need a followup colonoscopy in two months to re-evaluate the colon and document healing. Eliud Foy MD [facility] [place] [place] [facility] [id number] cc: Long Walters MD
[2018-11-07 04:00] VITALS: BP 134/59
[2018-11-07] MEDS: METRONIDAZOLE 500MG/NS 100ML 100 ML IV SCH (05:27)
[2018-11-07 06:23] LABS: BASOPHILS # (AUTO) 0.1 (0.0-0.1); BASOPHILS % 1.2 % (0.0-1.0); EOSINOPHILS # (AUTO) 0.2 (0.0-0.4); EOSINOPHILS % 4.7 % (0.0-6.0); HEMATOCRIT 30.9 % (34.2-44.1); HEMOGLOBIN 9.8 g/dL (12.0-16.0); LYMPHOCYTES # (AUTO) 1.3 (1.0-3.2); LYMPHOCYTES % 26.6 % (18.0-39.1); MEAN CORPUSCULAR HGB CONC 31.7 g/dL (31-35); MEAN CORPUSCULAR VOLUME 85.1 fL (81-99); MONOCYTES # (AUTO) 0.6 (0.2-0.8); MONOCYTES % 12.4 % (4.4-11.3); NEUTROPHILS # (AUTO) 2.4 (2.1-6.9); NEUTROPHILS % 50.2 % (38.7-80.0); PLATELET COUNT 236 x10e3/uL (140-360); RED BLOOD COUNT 3.63 x10e6/uL (3.6-5.1); RED CELL DISTRIBUTION WIDTH 14.7 % (11.7-14.4)
[2018-11-07 06:46] LABS: ALANINE AMINOTRANSFERASE 24 IU/L (0-55); ALBUMIN 2.5 g/dL (3.5-5.0); ALBUMIN/GLOBULIN RATIO 0.8 (0.8-2.0); ALKALINE PHOSPHATASE 99 IU/L (40-150); ANION GAP 12.8 mmol/L (8-16); BLOOD UREA NITROGEN 9 mg/dL (7-26); BUN/CREATININE RATIO 13 (6-25); CALCIUM 8.7 mg/dL (8.4-10.2); CARBON DIOXIDE 21 mmol/L (22-29); CHLORIDE 107 mmol/L (98-107); EST GLOMERULAR FILTRATION RATE > 60 ML/MIN (60-); GLUCOSE 80 mg/dL (74-118); POTASSIUM 3.8 mmol/L (3.5-5.1); SODIUM 137 mmol/L (136-145)
[2018-11-07] MEDS: INSULIN LISPRO 100 UNIT/1 ML 3ML VIAL SQ SCH ×2 (07:30→11:30)
--- NOTE | 2018-11-07 07:30 | NUR ---
PT UP IN BED NO DISTRESS NOTED ,DENIES PAIN
[2018-11-07 07:35] VITALS: BP 107/52
[2018-11-07 08:15] VITALS: BP 107/52
[2018-11-07] MEDS: DICYCLOMINE HCL 10 MG CAP PO SCH ×2 (09:01→12:08)
[2018-11-07] MEDS: PANTOPRAZOLE 40 MG 10ML VIAL IV SCH (09:01)
[2018-11-07] MEDS: SITAGLIPTIN 100 MG TAB PO SCH (09:08)
[2018-11-07] MEDS: CEFTRIAXONE SOD 1 GM/NS 50 ML 50 ML IV SCH (09:08)
[2018-11-07] MEDS ORDERED: LOPERAMIDE HCL 2 MG CAP PO ONE (10:00)
--- NOTE | 2018-11-07 10:30 | NUR ---
DR Gomez HERE ODRES WRITTEN
--- NOTE | 2018-11-07 10:40 | Discharge Summary ---
ADMIT DIAGNOSES: 1. Diverticulitis. 2. Lower gastrointestinal bleeding, likely secondary to diverticulitis. 3. Gastroesophageal reflux disease exacerbated by underlying GLP-1 agonist therapy. 4. History of constipation with likely subsequent hemorrhoids. 5. Acute renal insufficiency. 6. Type 2 diabetes mellitus with neuropathy. DISCHARGE DIAGNOSES: 1. Ischemic colitis, resolving. 2. Lower gastrointestinal bleeding, secondary to ischemic colitis, resolved. 3. Acute posthemorrhagic anemia, stabilized. 4. Gastroesophageal reflux disease, likely exacerbated by the patient's underlying GLP-1 agonist therapy. 5. Chronic constipation. 6. Acute renal insufficiency, resolved. 7. Type 2 diabetes mellitus with neuropathy. HOSPITAL COURSE: This is a 68-year-old white woman, who was initially admitted to [facility] because of lower gastrointestinal bleeding that was thought to be initially secondary to diverticulitis. On admission, the patient underwent a CT of the abdomen and pelvis with intravenous contrast that revealed findings consistent with diffuse colonic wall thickening extending from the ascending colon to the sigmoid colon with pericolonic fat stranding. The CT of the abdomen and pelvis also revealed findings consistent with hepatic steatosis. The patient initially was found to have a white blood cell count of 14,600 with 78% segmenters. On day of discharge, the patient's white blood cell count was 4800 with 50% segmenters. The patient's hemoglobin on admission was 12.6 g/dL. On day of discharge, it was 9.8 g/dL. The patient was not transfused blood during this hospitalization. The patient improved clinically with intravenous fluids as well as intravenous antibiotics, namely ceftriaxone and metronidazole, which she tolerated quite well. The patient had stool studies during this hospitalization and stool culture for E coli Shiga toxin was negative. Salmonella and Shigella cultures were also negative. Stool cultures were also negative. Campylobacter culture was still pending on the day of discharge. The patient was found to have positive stool lactoferrin during this hospitalization. She was also found to be Hemoccult positive on admission. On admission, the patient's BUN and creatinine was 25 and 1.21 respectively. This improved dramatically with intravenous fluids. On the day of discharge, the patient's BUN and creatinine was 9 and 0.7 respectively. Also on admission, the patient's AST and ALT were 64 and 84 respectively. On the day of discharge, the patient's AST and ALT were 15 and 24 respectively. Also during this hospitalization, the patient had iron studies done, which were consistent with iron deficiency anemia. The patient was seen by Gastroenterology during this hospitalization, namely Dr. Eliud Foy, who performed colonoscopy. The colonoscopy revealed internal hemorrhoids that were not actively bleeding. It did reveal that the colonoscope was not advanced past 80 cm from the anal verge because of the severely diffuse ulcerated colon. The shoe packer, namely Dr. Eliud Foy felt that these findings were consistent with ischemic colitis. The patient's hospitalization was unremarkable. On discharge, she was tolerating a full liquid diet. Also prior to discharge, her hematochezia had resolved. CONDITION ON DISCHARGE: Stable. DISCHARGE MEDICATIONS: 1. Metronidazole 500 mg p.o. t.i.d. for 5 more days. 2. Bentyl 20 mg p.o. t.i.d. for 2 weeks. 3. Nexium 40 mg daily. 4. Januvia 100 mg daily. 5. Zolpidem 10 mg at bedtime p.r.n. insomnia. 6. Farxiga 10 mg daily. 7. Trulicity 1.5 mg subcutaneous weekly. 8. Tylenol with codeine No. 3 one pill every 6 hours p.r.n. pain. The following medications will be on hold until further notice: 1. Meloxicam. 2. Aspirin. 3. Atorvastatin. 4. Coenzyme Q10. 5. Biotin. 6. Lisinopril and hydrochlorothiazide. The patient was also instructed to avoid all NSAIDs as well as aspirin and meloxicam. FOLLOWUP INSTRUCTIONS: The patient was instructed to follow up with her primary care physician, namely Dr. Long Walters within the next 7-10 days. MD CHERRIE Singh/ANNALISA /[id number]
[2018-11-07 11:47] VITALS: BP 120/57
[2018-11-07 12:23] LABS: C DIFFICILE TOXIN A&B AMP PROB NEGATIVE (NEGATIVE)
[2018-11-07] MEDS ORDERED: FLAGYL250 MG PO (13:58)
[2018-11-07] MEDS ORDERED: BENTYL10 MG/1 ML PO (13:59)
--- NOTE | 2018-11-07 14:40 | NUR ---
PT DISCHARGED HOME IV DCD WITHUT REDNESS OR SWELLING,TOLERATED DIET WELL,TRANSPORTED TO AUTO VIA W/C
== END 2018-11-07 14:10 | disposition home or self-care (01) | DRG 871 ==
LOC: ER 07:12 → ERHOLD 09:27 → MED/SURG3 10:19
PROVIDERS: ADMIT Internal Medicine; ATTEND Internal Medicine
PROC: 0DBM8ZX Excision of Descending Colon, Via Natural or Artificial Opening Endoscopic, Diagnostic (ICD-10-PCS; principal; 2018-11-06 16:58)
DX: A41.9 Sepsis, unspecified organism (principal); K57.93 Diverticulitis of intestine, part unspecified, without perforation or abscess with bleeding; N17.9 Acute kidney failure, unspecified; D62 Acute posthemorrhagic anemia; E11.40 Type 2 diabetes mellitus with diabetic neuropathy, unspecified; Z79.4 Long term (current) use of insulin; K21.9 Gastro-esophageal reflux disease without esophagitis; G47.00 Insomnia, unspecified; M19.90 Unspecified osteoarthritis, unspecified site; E78.5 Hyperlipidemia, unspecified; Z85.3 Personal history of malignant neoplasm of breast; Z90.12 Acquired absence of left breast and nipple; K64.9 Unspecified hemorrhoids; K59.09 Other constipation; K76.0 Fatty (change of) liver, not elsewhere classified
CPT/HCPCS: 36415; 45380; 74177; 80053; 82270; 82607; 82728; 82746; 82948; 83540; 83630; 83993; 84466; 85014; 85018; 85025; 85045; 85610; 85730; 86850; 86900; 87045; 87177; 87328; 87493; 88305; 99284; J0696; J2250; J3010; J7030; Q9967

== ENCOUNTER → 2020-07-06 | Outpatient (CLI) | payer MEDICARE ==
[~2020-07-06] MED LIST changes: +ATORVASTATIN CA20 MG PO; +BENTYL10 MG/1 ML PO; +CO Q-10 100 MG1 EACH PO; +FARXIGA PO; +FLAGYL250 MG PO; +JANUVIA100 MG PO; +LISINOPRIL-HCT1 EACH PO; +MELOXICAM15 MG PO; +TRULICITY INJ; +VITAMIN D32000 UNIT PO
== END ==
LOC: US 12:33
PROVIDERS: ATTEND Internal Medicine
DX: R10.10 Upper abdominal pain, unspecified (principal); R10.811 Right upper quadrant abdominal tenderness
CPT/HCPCS: 76705

== ENCOUNTER 2021-04-12 08:28 | Emergency (ER) | payer MEDICARE ==
[~2021-04-12] VITALS: Ht 162.6 cm; Wt 65.8 kg
[2021-04-12] MEDS ORDERED: CASIRIVIMAB/IMDEVIMAB 10 ML in SODIUM CHLORIDE 0.9% 100 ML IV ONE (08:45)
== END 2021-04-12 10:26 | disposition home or self-care (01) ==
LOC: ER 08:48
DX: U07.1 COVID-19 (principal); I10 Essential (primary) hypertension; E11.9 Type 2 diabetes mellitus without complications; Z79.84 Long term (current) use of oral hypoglycemic drugs; Z79.899 Other long term (current) drug therapy; Z85.3 Personal history of malignant neoplasm of breast
CPT/HCPCS: 99283; J7050

== ENCOUNTER → 2021-09-01 | Outpatient (CLI) | payer MEDICARE | LOC: MAMMO 14:29 | PROVIDERS: ATTEND Obstetrics & Gynecology | DX: Z12.31 Encounter for screening mammogram for malignant neoplasm of breast (principal) ==

== ENCOUNTER → 2022-09-11 | Outpatient (CLI) | payer MEDICARE | LOC: MAMMO 09:13 | PROVIDERS: ATTEND Internal Medicine | DX: Z12.31 Encounter for screening mammogram for malignant neoplasm of breast (principal) ==

== ENCOUNTER 2024-02-01 09:44 | Emergency (ER) | payer MEDICARE ==
[~2024-02-01] VITALS: Ht 162.6 cm; Wt 65.8 kg
[~2024-02-01 09:44] MED LIST changes: +DOXYCYCLINE HY100 MG PO; +HYDROCODON-ACE1 EA11 PO; +LEVOFLOXACIN500 MG PO
[2024-02-01 09:53] VITALS: PULSE 78; RESP 18; TEMP 97.8; O2SAT 99
[2024-02-01] MEDS ORDERED: ULTRAM 50MG50 MG PO (10:34)
[2024-02-01] MEDS: IBUPROFEN 600 MG TAB PO STA (10:37)
== END 2024-02-01 11:32 | disposition home or self-care (01) ==
LOC: ER 09:53
DX: S42.215A Unspecified nondisplaced fracture of surgical neck of left humerus, initial encounter for closed fracture (principal); M25.512 Pain in left shoulder; W01.0XXA Fall on same level from slipping, tripping and stumbling without subsequent striking against object, initial encounter; Y93.01 Activity, walking, marching and hiking; Y92.89 Other specified places as the place of occurrence of the external cause; I10 Essential (primary) hypertension; E11.9 Type 2 diabetes mellitus without complications; K21.9 Gastro-esophageal reflux disease without esophagitis; M54.9 Dorsalgia, unspecified; G89.29 Other chronic pain; Z85.3 Personal history of malignant neoplasm of breast
CPT/HCPCS: 99284